=== PATIENT | female | born 1980 | race Caucasian/White ===

== ENCOUNTER 2023-06-18 13:05 | Outpatient (CLI) | payer MEDICAID, SELFPAY ==
--- NOTE | ~2023-06-18 | MMUS_ITS ---
EXAMINATION: MM diagnostic lisa BI w bogdan, US breast BI limited HISTORY: Bilateral breast lumps TECHNIQUE: Additional 3-D tomosynthesis images of the breasts were performed and synthetic 2-D images were generated. CAD analysis was submitted and interpreted. High resolution limited bilateral breast ultrasound was performed. COMPARISON: None BREAST PARENCHYMAL COMPOSITION: Not dense: There are scattered areas of fibroglandular density. FINDINGS: MAMMOGRAPHIC FINDINGS: There are multiple nodules in the periareolar location of the right breast which are obscured by fibr oglandular tissue. This corresponds to the area of palpable concern. There is focal asymmetry in the subareolar location of the left breast with ill-defined margins. There are no suspicious calcificatio ns. ULTRASOUND: Complete bilateral US of all 4 quadrants of the breasts and retroareolar region was reviewed. Right breast: At 12:00 near the nipple is a cluster of microcysts measuring 8 mm. At 3:00, 1 cm from the nipple there is a oval hypoechoic mass with posterior acoustic shadowing measuring 5 mm, likely c orresponding to a benign oil cyst seen on mammography. At 7:00, 3 cm from the nipple is an irregular shaped hypoechoic mass with parallel orientation, posterior acoustic shadowing and minimal internal v ascularity. This mass measures 1.3 x 2.7 cm and may relate percent to a debris-filled duct. Left breast: There are multiple small cysts of the left breast. No suspicious masses in the left [address] st to suggest malignancy. IMPRESSION: 1. Suspicious right breast mass at 7:00, 3 cm from the nipple. Additionally described sonographic abn ormalities are likely benign and six-month follow-up is recommended. 2. Ultrasound-guided right breast biopsy recommended. BI-RADS category 4, suspicious findings. Reviewed, dictated and finalized at location A. E SCENE ANALYST IMPRESSION: 1. Suspicious right breast mass at 7:00, 3 cm from the nipple. Additionally hernesto cribed sonographic abnormalities are likely benign and six-month follow-up is r ecommended. 2. Ultrasound-guided right breast biopsy recommended. BI-RADS category 4, suspicious findings.
== END 2023-06-18 13:06 | disposition home or self-care (01) ==
PROVIDERS: PCP Emergency Medicine; Visit Provider Emergency Medicine
DX: N63.10 Unspecified lump in the right breast, unspecified quadrant (principal); N63.20 Unspecified lump in the left breast, unspecified quadrant; R92.8 Other abnormal and inconclusive findings on diagnostic imaging of breast
CPT/HCPCS: 76642; 77062; 77066; G0279

== ENCOUNTER 2023-07-08 09:36 | Outpatient (CLI) | payer OTHER, SELFPAY ==
--- NOTE | ~2023-07-08 | MMUS_ITS ---
US breast biopsy RT w image, MM post biopsy invasive RT EXAMINATION: US GUIDED NEEDLE BIOPSY WITH VACUUM ASSISTANCE DATE: 07/08/2023 11:04 CDT INDICATION: Left breast mass seen on prior examination. Ultrasound-guided core biopsy is requested t o evaluate for malignancy. TECHNIQUE AND FINDINGS: The risks and potential benefits of the procedure were discussed with the patient, and written inform ed consent was obtained. After sterile preparation of the right breast, 1% lidocaine was utilized fo r local anesthesia. 1% lidocaine with epinephrine was used for deep anesthesia. A 10G vacuum-assisted biopsy gun needle was advanced through to the outer edge of the region of inter est from a lateral approach utilizing sonographic guidance. A total of 4 tissue core samples were ob tained through the lesion. An Inrad tissue marker clip was then placed at the biopsy site. Hemostasi s was achieved. The patient tolerated procedure well and there was no evidence of immediate complication. The patien t was given verbal instructions partly is from the department. Right breast mammograms to document t issue marker clip placement. The tissue samples were submitted to surgical pathology for histologic a nalysis. IMPRESSION: 1. Successful ultrasound-guided vacuum-assisted biopsy of right breast mass with tissue marker place ment. Please refer to pathology report for histologic analysis. Reviewed, dictated and finalized at location A. IMPRESSION: 1. Successful ultrasound-guided vacuum-assisted biopsy of right breast mass wi th tissue marker placement. Please refer to pathology report for histologic valeria lysis.
== END 2023-07-08 09:37 | disposition home or self-care (01) ==
PROVIDERS: PCP Emergency Medicine; Visit Provider Emergency Medicine
DX: N63.10 Unspecified lump in the right breast, unspecified quadrant (principal); N62 Hypertrophy of breast
CPT/HCPCS: 19083; 88305; A4648

== ENCOUNTER 2024-01-06 13:30 | Outpatient (CLI) | payer OTHER, SELFPAY ==
--- NOTE | ~2024-01-06 | MMUS_ITS ---
EXAMINATION: MM diagnostic lisa BI w bogdan, US breast RT limited HISTORY: Six-month follow-up of right breast lesion TECHNIQUE: 3-D tomosynthesis images of the bilateral breasts were performed and synthetic 2-D images were generated. CAD analysis was submitted and interpreted. High resolution limited right breast ultr asound was performed. COMPARISON: 06/18/2023 BREAST PARENCHYMAL COMPOSITION:Not Dense. There are scattered areas of fibroglandular density. FINDINGS: MAMMOGRAPHIC FINDINGS: Parenchymal pattern of both breasts is unchanged. Stable, lobulated mass at the outer right breast, n ow with biopsy marker present. Stable nodular opacity in the right subareolar region. No suspicious m ass or distortion seen. No suspicious microcalcifications. ULTRASOUND: At the 12:00 position right breast, there is a stable septated or clustered cysts measuring 8 mm in m aximum diameter. At the 3:00 position right breast, 1 cm from the nipple, there is a stable 5 mm prob able oil cyst, unchanged. At the 7:00 position right breast, 5 cm from nipple, there is a stable lobu lated solid mass with adjacent biopsy clip, compatible with the previously biopsied benign lesion. IMPRESSION: No evidence of malignancy. Stable benign lesions in the right breast, as above. Return to annual scr eening mammography advised. BI-RADS Category 2: Benign finding(s). Reviewed, dictated and finalized at location M. IMPRESSION: No evidence of malignancy. Stable benign lesions in the right breast, as above . Return to annual screening mammography advised. BI-RADS Category 2: Benign finding(s).
== END 2024-01-06 13:31 | disposition home or self-care (01) ==
LOC: ANHIMG 13:32
PROVIDERS: PCP Emergency Medicine; Visit Provider Surgery
DX: R92.8 Other abnormal and inconclusive findings on diagnostic imaging of breast (principal); N63.10 Unspecified lump in the right breast, unspecified quadrant; D24.1 Benign neoplasm of right breast
CPT/HCPCS: 76642; 77062; 77066; G0279

== ENCOUNTER 2024-05-21 08:00 | Outpatient (RCR) | payer OTHER, MEDICAID, SELFPAY ==
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
--- NOTE | 2024-03-13 16:45 | OPREHPOC ---
Outpatient Therapy Plan of Care This is a Multidisciplinary Plan of Care that may contain components documented by all disciplines (PT, OT, and ST.) PT Problem 1 PT Problem #1 Knowledge Deficit PT Goal 1 Goal / Goal Update Pt will be independent in HEP Pt will verbalize understanding of diagnosis and prognosis Target Visit 10 PT Problem 2 PT Problem #2 Pain PT Goal 1 Goal / Goal Update Pt will report greatest pain level at 6/10 or less to improve ADLs and activities - lumbar PT Goal 2 Goal / Goal Update Pt will report lowest pain rating at 3/10 to show improvement in overall discomfort - lumbar PT Problem 3 PT Problem #3 Impaired Strength PT Goal 1 Goal / Goal Update Pt will demo core strength of 3/5 of the TRAM to improve lumbopelvic stability Target Visit 8 PT Goal 2 Goal / Goal Update Pt will demo core strength of 3+/5 of the TRAM to improve lumbopelvic stability Pt will demo 4/5 or greater strength in BLE glutes to improve knee and lumbar stability Target Visit 16
--- NOTE | 2024-04-10 08:14 | PCPTNOTE ---
Patient called & cancelled scheduled appointment this date due to illness
--- NOTE | 2024-04-14 08:47 | PCPTNOTE ---
Patient did not show up for scheduled appointment this date.
--- NOTE | 2024-04-17 08:54 | PTOPPROG ---
Assessment and note entered by Farida Blanco, PT Evaluation Information Assessment Status Progress Diagnosis Uspec injury RLE initial encounter, dorsalgia unspec ICD-10 Condition Codes (PT) Pain in low back M54.50,Pain in right knee M25.561 ,Weakness R53.1 Subjective Information Self-perceived improvement in the low back is 0%, and in the knee is 90% improved. Pt reports has fallen two time since last session. Slipped in the mud. Was able to put her socks on today with minimal to moderate discomfort, no longer feels like is a knife in my knee . Assessment PT Clinical Summary Pt has attended 5 sessions including her evaluation. She reports her knee is greatly improved, her pain in her back has not changed. Her progress note shows improvement in her strength overall in the lumbopelvic area and she reports she is doing her home exercises. She also shows improvement in her flexibility of the anterior hip and leg muscles. Today she shows right iliac crests high with possible leg length discrepancy. She has met half her therapy goals and would thus benefit from continued therapy to continue improvement and overall function. Plan of Care Interventions Electrical Stimulation,Gait Training,Hot Pack/Cold Pack,Manual Therapy,Mechanical Traction,Neuro Re- education,Therapeutic Activities,Therapeutic Exercise,Self-Care/Home Management,Ultrasound, Other Other Interventions Bracing, taping, IASTM, TENS unit PT Services Indicated Yes Treatment Frequency and cont 1-2x weekly x 10 visits Duration These treatments will address the objective and functional deficits as defined above. The patient will be advanced safely and appropriately in order for the patient to progress towards his/her prior level of function. Additional exercises will be introduced and as well as a comprehensive home exercise program upon discharge, if needed, ?to ensure carryover of functional gains achieved in the clinic. This treatment plan has been reviewed and agreement upon by the patient.
--- NOTE | 2024-05-12 11:08 | PCPTNOTE ---
Patient called & cancelled scheduled appointment this date due to work meeting
--- NOTE | 2024-05-26 08:17 | PCPTNOTE ---
Pt. did not show for her scheduled appointment.
--- NOTE | 2024-06-02 10:25 | PCPTNOTE ---
This treatment is being continued on visit number [id number]. Please see documentation on both accounts to view progress. Completed interventions, outcomes, and problems have been marked as Inactive to facilitate the copying of the Care plan routine for recurring accounts.
== END 2024-06-02 10:02 | disposition still patient (30) ==
LOC: ANHHIPT 08:00
PROVIDERS: PCP Nurse Practitioner Family; Visit Provider Nurse Practitioner Family
DX: S89.91XA Unspecified injury of right lower leg, initial encounter (principal); M54.9 Dorsalgia, unspecified
CPT/HCPCS: 97014; 97110; 97140; 97162; 97750; G0283

== ENCOUNTER 2024-07-25 10:46 | Outpatient (CLI) | payer OTHER, MEDICAID, SELFPAY ==
--- NOTE | ~2024-07-25 | MR_ITS ---
MRI of the lumbar spine Clinical History: Back pain Technique: Axial T2-weighted images, and sagittal T1-weighted, T2-weighted, and T2 fat-sat images wer e acquired. Findings: There is no fracture or subluxation of the lumbar spine. Vertebral bodies maintain normal h eight and alignment. There are type I Modic changes about the L5-S1 disc space. At L1-L2, L2-L3, L3-L4, there is no disc bulge or herniation. No spinal canal stenosis or neural fora nanda narrowing at these levels. At L4-L5, there is minimal disc desiccation without significant disc bulge or herniation. There is mo derate to advanced facet arthropathy at this level. No spinal canal stenosis or neural foraminal narr owing. At L5-S1, there is advanced degenerative disc narrowing. There is left paracentral disc extrusion wit h underlying minimal disc bulge. There is mild to moderate facet arthropathy. No whit central canal stenosis. There is mild left neural foraminal narrowing. Right neural foramen preserved. Paravertebral soft tissues are otherwise unremarkable. Impression: Left paracentral disc extrusion at L5-S1, but no whit canal stenosis. Minimal left neural foraminal narrowing at this level. Reviewed, dictated and finalized at location . Impression: Left paracentral disc extrusion at L5-S1, but no whit canal stenosis. Minimal left neural foraminal narrowing at this level.
== END 2024-07-25 10:47 | disposition home or self-care (01) ==
PROVIDERS: PCP Nurse Practitioner Family; Visit Provider Nurse Practitioner Family
DX: M51.369 Other intervertebral disc degeneration, lumbar region without mention of lumbar back pain or lower extremity pain (principal); M51.27 Other intervertebral disc displacement, lumbosacral region
CPT/HCPCS: 72148

== ENCOUNTER 2024-10-02 11:15 | Outpatient (CLI) | payer OTHER, MEDICAID, SELFPAY ==
[2024-10-02 11:58] LABS: Hemoglobin 14.5 g/dL (12.0-15.0); Mean Corpuscular HGB Conc 32.2 g/dl (32-36); Mean Corpuscular Hemoglobin 32.3 pg (26-34); Mean Corpuscular Volume 100.2 fl (80-100); Mean Platelet Volume 11.2 fl (7.4-10.4); Platelet Count Result 268 k/mm3 (150-375); Red Blood Count 4.49 M/mm3 (4.2-5.4); White Blood Count 7.3 K/mm3 (4.5-10.0)
[2024-10-02 12:10] LABS: Alanine Aminotransferase 17 U/L (6-35); Albumin Level 4.2 g/dL (3.5-5.1); Alkaline Phosphatase 105 U/L (38-126); Anion Gap 9 mmol/L (4-12); Aspartate Amino Transferase 25 U/L (14-36); Bilirubin,Total 0.6 mg/dL (0.2-1.3); Blood Urea Nitrogen 13 mg/dL (7-17); Calcium 9.2 mg/dL (8.4-10.2); Carbon Dioxide 24 mmol/L (22-30); Chloride 106 mmol/L (98-107); Cholesterol 211 mg/dL (0-200); Estimated Glomerular Filt Rate > 60; Glucose 93 mg/dL (65-110); HDL Direct 51 mg/dL; Potassium 4.1 mmol/L (3.4-5.0); Sodium 139 mmol/L (137-145); Total Protein 7.7 g/dL (6.3-8.2); Triglycerides 152 mg/dL (<150)
[2024-10-02 12:21] LABS: LDL Cholesterol Direct 111 mg/dL
[2024-10-03 23:52] LABS: Amphetamines NEGATIVE ng/mL (<500); Barbiturates NEGATIVE ng/mL (<300); Benzodiazepines NEGATIVE ng/mL (<100); Cocaine Metabolite NEGATIVE ng/mL (<150); Marijuana Metabolite NEGATIVE ng/mL (<20); Methadone Metabolite NEGATIVE ng/mL (<100); Opiates NEGATIVE ng/mL (<100); Oxidant NEGATIVE mcg/mL (<200); PCP NEGATIVE ng/mL (<25)
== END 2024-10-02 11:16 | disposition home or self-care (01) ==
LOC: ANHLAB 11:16
PROVIDERS: PCP Nurse Practitioner Family; Visit Provider Nurse Practitioner Family
DX: F41.0 Panic disorder [episodic paroxysmal anxiety] (principal); E03.9 Hypothyroidism, unspecified; E66.01 Morbid (severe) obesity due to excess calories; Z68.42 Body mass index [BMI] 45.0-49.9, adult; D24.1 Benign neoplasm of right breast; D50.9 Iron deficiency anemia, unspecified; G47.00 Insomnia, unspecified; L29.9 Pruritus, unspecified; Z72.0 Tobacco use; Z79.899 Other long term (current) drug therapy
CPT/HCPCS: 36415; 80053; 80061; 80307; 83036; 84443; 85027